=== PATIENT | female | born 1985 | race Hispanic/Latino ===

== ENCOUNTER 2017-06-02 02:54 | Emergency (ER) | payer SELFPAY ==
[2017-06-02 03:04] VITALS: BP 113/77; PULSE 80; RESP 16; TEMP 97.3; O2SAT 100
--- NOTE | 2017-06-02 03:15 | ED PDOC ---
HPI: Psych/Substance Abuse Time Seen by Provider: 06/02/17 03:00 Chief Complaint (Nursing): Alcohol Ingestion Chief Complaint (Provider): etoh History Per: Patient, EMS History/Exam Limitations: intoxication Additional History Per: Patient, EMS, Friend Additional Complaint(s): 31 y/o female brought in by EMS for acute alcohol intoxication. Patient found sleeping on bench. Patient awake upon arrival, states she "Drank too much". Patient admits to feeling nauseous, states she already threw up. Past Medical History Reviewed: Historical Data, Nursing Documentation, Vital Signs Vital Signs: Last Vital Signs Temp 97.3 F L 06/02/17 03:01 Pulse 80 06/02/17 03:01 Resp 16 06/02/17 03:01 BP 113/77 06/02/17 03:01 Pulse Ox 100 06/02/17 03:01 - Medical History PMH: Gastritis, Migraine - Surgical History Surgical History: Appendectomy, Endoscopy - Family History Family History: States: No Known Family Hx - Living Arrangements Living Arrangements: Alone - Home Medications Home Medications: Ambulatory Orders Medication Instructions Recorded Acetaminophen/Butalbital/Caf 2 mg PO Q6 PRN 05/24/15 [Fioricet] Ondansetron [Zofran Odt] 4 mg PO ASDIR PRN #15 odt 05/24/15 - Allergies Allergies/Adverse Reactions: Allergies Allergy/AdvReac Type Severity Reaction Status Date / Time codeine Allergy Mild RASH Verified 06/02/17 03:04 Review of Systems ROS Statement: Except As Marked, All Systems Reviewed And Found Negative Gastrointestinal: Positive for: Nausea Physical Exam - Reviewed Nursing Documentation Reviewed: Yes Vital Signs Reviewed: Yes - Physical Exam Appears: Positive for: Well, Non-toxic, No Acute Distress Head Exam: Positive for: ATRAUMATIC, NORMAL INSPECTION, NORMOCEPHALIC Skin: Positive for: Normal Color Eye Exam: Positive for: Normal appearance ENT: Positive for: Normal ENT Inspection Cardiovascular/Chest: Positive for: Regular Rate, Rhythm Respiratory: Positive for: Normal Breath Sounds Gastrointestinal/Abdominal: Positive for: Normal Exam Back: Positive for: Normal Inspection Extremity: Positive for: Normal ROM Neurologic/Psych: Positive for: Alert, Other (+AOB) - Laboratory Results Result Diagrams: 06/02/17 04:06 06/02/17 04:06 - ECG O2 Sat by Pulse Oximetry: 100 - Progress ED Course And Treament: labs, IV fluids, IV zofran On re-eval, patient states she is feeling better. Tolerated PO. 5:30 Patient awake, alert, oriented x3. Friend at bedside to take patient home. Advised follow up PMD 2-3 days. Return to ED for worsening/concerning symptoms. Disposition - Clinical Impression Clinical Impression: Alcohol intoxication - Patient ED Disposition Is Patient to be Admitted: No Counseled Patient/Family Regarding: Studies Performed, Diagnosis, Need For Followup - Disposition Disposition: Routine/Home Disposition Time: 05:32 Condition: IMPROVED Instructions: Alcohol Intoxication (ED)
[2017-06-02] MEDS: Sodium Chloride 0.9% 1,000 ML IV STA (03:29)
[2017-06-02 04:09] LABS: BASO # 0.1 K/uL (0.0-0.2); BASO % 0.9 % (0.0-2.0); EOS # 0.1 K/uL (0.0-0.7); LYMPH # 2.2 K/uL (1.0-4.3); LYMPH % 26.2 % (20.0-40.0); MEAN CELL VOLUME 91.9 fl (81.0-99.0); MEAN CORPUSCULAR HEMOGLOBIN 30.6 pg (27.0-31.0); MEAN CORPUSCULAR HGB CONC 33.3 g/dL (33.0-37.0); MEAN PLATELET VOLUME 9.4 fl (7.2-11.7); MONO # 0.6 K/uL (0.0-0.8); MONO % 7.5 % (0.0-10.0); NEUT # 5.5 K/uL (1.8-7.0); NEUT % 64.4 % (50.0-75.0); NRBC % 0.1 % (0.0-0.0); WHITE BLOOD COUNT 8.5 K/uL (4.8-10.8)
[2017-06-02 04:20] LABS: ALB/GLOB RATIO 1.5 (1.0-2.1); ALCOHOL SERUM 259 mg/dl (0-10); ALKALINE PHOSPHATASE 63 U/L (38-126); ALT/SGPT 33 U/L (9-52); AST/SGOT 46 U/L (14-36); BLOOD UREA NITROGEN 9 mg/dl (7-17); CALCIUM 8.4 mg/dL (8.4-10.2); CARBON DIOXIDE 20 mmol/L (22-30); GFR AFRICAN-AMERICAN > 60; GLUCOSE,RANDOM 104 mg/dL (65-105); SODIUM 140 mmol/l (132-148)
[2017-06-02 16:17] LABS: CHLORIDE 107 mmol/L (98-107)
[2017-06-02 16:18] LABS: POTASSIUM 4.2 MMOL/L (3.6-5.0)
== END 2017-06-02 05:40 | disposition home or self-care (01) ==
LOC: H.ER 02:54
DX: F10.129 Alcohol abuse with intoxication, unspecified (principal)
CPT/HCPCS: 80053; 81025; 82948; 85025; 96360; 99282; G0480; J2405; J7040